=== PATIENT | female | born 2005 | race Caucasian/White ===

== ENCOUNTER 2024-12-04 08:24 | Emergency (ER) | payer OTHER, MEDICAID ==
[~2024-12-04] VITALS: Ht 162.6 cm; Wt 70.0 kg
[2024-12-04 08:27] VITALS: O2SAT 98
[2024-12-04] MEDS: ACETAMINOPHEN 325MG TABLET PO ONE (08:45)
[2024-12-04 08:57] LABS: BASOPHILS % 0.4 % (0.0-2.0); EOSINOPHILS % 0.4 % (0.0-5.0); HEMATOCRIT. 34.5 % (36.0-48.0); LYMPHOCYTES % 19.5 % (20.0-50.0); MEAN CORPUSCULAR HEMOGLOBIN 27.1 pg (28.0-32.0); MEAN CORPUSCULAR HGB CONC 31.9 g/dL (31.0-37.0); MEAN CORPUSCULAR VOLUME 84.8 fL (81.0-99.0); MEAN PLATELET VOLUME 8.7 fl (7.4-10.4); MONOCYTES % 7.4 % (2.0-8.0); NEUTROPHILS % 72.3 % (40.0-76.0); PLATELET 404 x1000/uL (130-400); RED BLOOD CELL COUNT 4.07 mill/uL (4.2-5.4); RED CELL DISTRIBUTION WIDTH 16.9 % (11.6-14.6)
[2024-12-04 09:01] LABS: CHLORIDE 104 mEq/L (98-107); POTASSIUM 3.3 mEq/L (3.5-5.1); SODIUM 139 mEq/L (136-145)
[2024-12-04 09:02] LABS: CALCIUM 9.4 mg/dL (8.7-10.4); CARBON DIOXIDE 26 mEq/L (21-32)
[2024-12-04 09:07] LABS: CREATININE 0.7 mg/dL (0.6-1.0); GLUCOSE 138 mg/dL (70-105)
[2024-12-04 09:08] LABS: UREA NITROGEN BLOOD 7 mg/dL (9-23)
[2024-12-04 09:09] LABS: ALANINE AMINOTRANSFERASE 60 IU/L (10-49); ALBUMIN 4.2 g/dL (3.2-4.8); ASPARTATE AMINOTRANSFERASE 91 IU/L (<34); BILIRUBIN TOTAL 0.5 mg/dL (0.1-1.0)
[2024-12-04 09:10] LABS: BILIRUBIN DIRECT 0.2 mg/dL (<=3.0); PROTEIN TOTAL 7.6 g/dL (6.0-8.3)
[2024-12-04 09:21] LABS: HCG SCREEN NEGATIVE
[2024-12-04] MEDS: MORPHINE SULFATE 4 MG/ML INJ (FOR IV/IM USE) IV ONE (12:16)
[2024-12-04] MEDS ORDERED: IOHEXOL-300 100 ML BOTTLE ONE (12:31)
[2024-12-04] MEDS: PIPERACILLIN/TAZO 3.375G/50ML 50 ML IV SCH (14:00)
[2024-12-04 15:19] VITALS: BP 118/74; PULSE 66; RESP 18; TEMP 36.8; O2SAT 98
== END 2024-12-04 15:51 ==
LOC: ER 08:24 → CANBEDREQ 13:17 → ER 15:51
DX: R10.13 Epigastric pain (principal); R11.2 Nausea with vomiting, unspecified; Z90.49 Acquired absence of other specified parts of digestive tract
CPT/HCPCS: 80076; 80048; 84703; 83690; 85025; 87040; 36415; 71045; 74177; 93005; 96365; 96375; 99285; Q9967; J2543; J2270; Z7610 ×3; A4606